=== PATIENT | female | born 1965 | race African-American/Black ===

== ENCOUNTER 2019-12-24 14:26 | Inpatient (IN) ==
[2019-12-24] MEDS ORDERED: cefTRIAXone 1,000 MG VIAL ONE (14:47)
[2019-12-24] MEDS ORDERED: cefTRIAXone 1,000 MG in SODIUM CHLORIDE 0.9% 100 ML IV STA (14:47)
[2019-12-24] MEDS ORDERED: SODIUM CHLORIDE 0.9% 100 ML IV ONE (14:48)
[2019-12-24] MEDS ORDERED: cefTRIAXone 1,000 MG in SYRINGE 1 EACH IV STA (14:52)
[2019-12-24 15:22] LABS: Alanine Aminotransferase 51 U/L (13-56); Alkaline Phosphatase 111 U/L (45-117); Aspartate Amino Transferase 75 U/L (0-37); Bilirubin,Total < 0.39 MG/DL (0.2-1.0); Blood Urea Nitrogen 7 MG/DL (7-18); Estimated Glom Filtration Rate 118 ML/MIN; Glucose 101 MG/DL (74-106); Osmolality,Calculated 272.7 MOS/KG (273-304); Total Protein 7.1 G/DL (6.4-8.3)
[2019-12-24] MEDS ORDERED: AZITHROMYCIN 250 MG TABLET PO STA (15:31)
[2019-12-24 15:37] LABS: Eosinophils % 0.1 % (0.00-10.9); Hematocrit 39.8 VOL% (35.7-47.0); Hemoglobin 12.2 GM/DL (12.0-16.0); Immature Granulocytes % 0.4 %; Immature Granulocytes Absolute 0.03 #; Lymphocytes # 1.1 10*3/uL (1.4-4.0); Lymphocytes % 15.5 % (21.3-54.2); Mean Corpuscular HGB Conc 30.7 GM/DL (32-36); Mean Corpuscular Volume 78.2 FL (87-102); Mean Platelet Volume 10.8 FL (9.6-12.0); Monocytes % 3.9 % (1.7-12.7); Neutrophils % 80.1 % (38.7-73.9); Platelet Count 200 T/CUMM (130-400); Red Blood Count 5.09 MC/CUMM (3.8-5.5); Red Cell Distribution Width 16.2 % (9.3-17.3); White Blood Count 7.2 T/CUMM (4-12)
[2019-12-24] MEDS: HYDROXYCHLOROQUINE 200 MG TABLET PO SCH (15:59)
[2019-12-24] MEDS ORDERED: ZINC SULFATE 220 MG CAPSULE PO SCH (16:00)
[2019-12-24] MEDS ORDERED: hydrALAZINE 20 MG/1 ML VIAL IV PRN (16:18)
[2019-12-24] MEDS ORDERED: DEXTROSE 10% 250 ML BAG IV PRN (16:18)
[2019-12-24] MEDS ORDERED: ONDANSETRON 4 MG/2 ML VIAL IV PRN (16:18)
[2019-12-24] MEDS ORDERED: GLUCAGON 1 MG VIAL IM PRN (16:18)
[2019-12-24] MEDS: ENOXAPARIN 40 MG/0.4 ML SYRINGE SUBCUT SCH (17:29)
[2019-12-24] MEDS: ACETAMINOPHEN 325 MG TABLET PO PRN (20:53)
[2019-12-24] MEDS: ZALEPLON 5 MG CAPSULE PO PRN (21:08)
[2019-12-25 03:21] LABS: Basophils % 0.2 % (0.0-0.8); Hematocrit 37.6 VOL% (35.7-47.0); Hemoglobin 11.4 GM/DL (12.0-16.0); Immature Granulocytes % 0.2 %; Immature Granulocytes Absolute 0.01 #; Lymphocytes # 1.2 10*3/uL (1.4-4.0); Lymphocytes % 22.6 % (21.3-54.2); Mean Corpuscular HGB Conc 30.3 GM/DL (32-36); Mean Corpuscular Volume 79.5 FL (87-102); Mean Platelet Volume 10.4 FL (9.6-12.0); Monocytes % 4.9 % (1.7-12.7); Neutrophils % 72.1 % (38.7-73.9); Platelet Count 206 T/CUMM (130-400); Red Blood Count 4.73 MC/CUMM (3.8-5.5); Red Cell Distribution Width 16.2 % (9.3-17.3); White Blood Count 5.4 T/CUMM (4-12)
[2019-12-25 03:52] LABS: Calcium 8.3 MG/DL (8.5-10.1); Osmolality,Calculated 271.8 MOS/KG (273-304); Risk Ratio 1.87; Thyroid Stimulating Hormone 1.82 uIU/ml (0.358-3.74); VLDL CHOLESTEROL 11.2 MG/DL
[2019-12-25 08:12] LABS: Apearance,Urine CLEAR (Clear); Bilirubin,Urine Negative (Negative); Blood, Urine Negative (Negative); Glucose,Urine (UA) >=500 mg/dL (Negative); Ketones,Urine Negative (Negative); Nitrite,Urine Negative (Negative); Protein,Urine Negative; RBC,Urine 2 /HPF (0-4); Urine Color Straw (Yellow); Urine Specific Gravity 1.011 (1.001-1.035); Urine Urobilinogen < 2.0 EU/DL (0.2-1.0); WBC,Urine 3 /HPF (0-6)
[2019-12-25] MEDS: HYDROXYCHLOROQUINE 200 MG TABLET PO SCH ×2 (08:40→21:10)
[2019-12-25] MEDS: PANTOPRAZOLE 40 MG TABLET PO SCH (08:40)
[2019-12-25] MEDS: cefTRIAXone 1,000 MG in SYRINGE 1 EACH IV SCH (08:40)
[2019-12-25] MEDS: ACETAMINOPHEN 325 MG TABLET PO PRN ×2 (11:54→21:10)
[2019-12-25] MEDS: guaiFENesin/DM ER 600-30 MG TABLET PO SCH ×2 (11:54→21:10)
[2019-12-25] MEDS: ENOXAPARIN 40 MG/0.4 ML SYRINGE SUBCUT SCH (19:12)
[2019-12-25] MEDS: ZALEPLON 5 MG CAPSULE PO PRN (21:10)
[2019-12-26 03:29] LABS: Basophils % 0.2 % (0.0-0.8); Hematocrit 38.5 VOL% (35.7-47.0); Hemoglobin 11.5 GM/DL (12.0-16.0); Immature Granulocytes % 1.2 %; Immature Granulocytes Absolute 0.07 #; Lymphocytes # 1.2 10*3/uL (1.4-4.0); Lymphocytes % 20.5 % (21.3-54.2); Mean Corpuscular HGB Conc 29.9 GM/DL (32-36); Mean Corpuscular Volume 79.9 FL (87-102); Mean Platelet Volume 9.7 FL (9.6-12.0); Monocytes % 6.6 % (1.7-12.7); Neutrophils % 71.5 % (38.7-73.9); Platelet Count 239 T/CUMM (130-400); Red Blood Count 4.82 MC/CUMM (3.8-5.5); White Blood Count 5.6 T/CUMM (4-12)
[2019-12-26 03:50] LABS: Calcium 8.4 MG/DL (8.5-10.1); Osmolality,Calculated 273.7 MOS/KG (273-304)
[2019-12-26 09:56] LABS: ABG Base Excess 3.2 MMOL/L (-2.5-2.5); ABG HCO3 27.1 MMOL/L (20-26); ABG Oxygen Saturation 91.6 % (95-100); ABG PH 7.452 (7.35-7.45); ABG PO2 59.5 MM HG (80-95)
[2019-12-26] MEDS: HYDROXYCHLOROQUINE 200 MG TABLET PO SCH ×2 (10:46→22:00)
[2019-12-26] MEDS: cefTRIAXone 1,000 MG in SYRINGE 1 EACH IV SCH (10:47)
[2019-12-26] MEDS: guaiFENesin/DM ER 600-30 MG TABLET PO SCH ×2 (10:47→22:00)
[2019-12-26] MEDS: PANTOPRAZOLE 40 MG TABLET PO SCH (10:47)
[2019-12-26] MEDS ORDERED: DEXTROSE 50% 25 GM/50 ML VIAL IV PRN (13:41)
[2019-12-26] MEDS ORDERED: LORazepam 0.5 MG TABLET PO PRN (13:53)
[2019-12-26] MEDS: ACETAMINOPHEN 325 MG TABLET PO PRN ×2 (16:30→22:00)
[2019-12-26] MEDS: INSULIN LISPRO 100 UNIT/ML SUBCUT SCH ×2 (17:30→21:47)
[2019-12-26] MEDS ORDERED: ALBUTEROL/IPRATROPIUM 3 ML NEB RESP TX SCH (19:00)
[2019-12-26] MEDS: ZALEPLON 5 MG CAPSULE PO PRN (22:00)
[2019-12-26] MEDS: ENOXAPARIN 40 MG/0.4 ML SYRINGE SUBCUT SCH (22:00)
[2019-12-27 03:40] LABS: Basophils % 0.5 % (0.0-0.8); Eosinophils % 0.2 % (0.00-10.9); Hematocrit 37.9 VOL% (35.7-47.0); Hemoglobin 11.6 GM/DL (12.0-16.0); Immature Granulocytes % 2.2 %; Immature Granulocytes Absolute 0.13 #; Lymphocytes # 1.3 10*3/uL (1.4-4.0); Lymphocytes % 22.9 % (21.3-54.2); Mean Corpuscular HGB Conc 30.6 GM/DL (32-36); Mean Corpuscular Volume 77.5 FL (87-102); Mean Platelet Volume 9.9 FL (9.6-12.0); Monocytes % 6.8 % (1.7-12.7); Neutrophils % 67.4 % (38.7-73.9); Platelet Count 262 T/CUMM (130-400); Red Blood Count 4.89 MC/CUMM (3.8-5.5); Red Cell Distribution Width 16.1 % (9.3-17.3); White Blood Count 5.9 T/CUMM (4-12)
[2019-12-27 04:06] LABS: Calcium 8.5 MG/DL (8.5-10.1); Osmolality,Calculated 267.1 MOS/KG (273-304)
[2019-12-27] MEDS: LEVOTHYROXINE 50 MCG TABLET PO SCH ×2 (05:14→06:00)
[2019-12-27] MEDS ORDERED: HydrOXYzine PAMOATE 50 MG CAPSULE PO PRN (07:39)
[2019-12-27] MEDS ORDERED: POTASSIUM CHLORIDE RIDER 10 MEQ in PREMIX 1 EACH IV PRN (07:45)
[2019-12-27] MEDS ORDERED: POTASSIUM CHLORIDE 20 MEQ TABLET PO PRN (07:45)
[2019-12-27] MEDS ORDERED: MAGNESIUM SULF RIDER 4 GM in PREMIX 1 EACH IV PRN (07:46)
[2019-12-27] MEDS ORDERED: MAGNESIUM SULF RIDER 2 GM in PREMIX 1 EACH IV PRN (07:46)
[2019-12-27] MEDS ORDERED: ZINC SULFATE 220 MG CAPSULE PO SCH (09:00)
[2019-12-27] MEDS: INSULIN LISPRO 100 UNIT/ML SUBCUT SCH ×4 (09:00→21:08)
[2019-12-27] MEDS: HYDROXYCHLOROQUINE 200 MG TABLET PO SCH (09:05)
[2019-12-27] MEDS: guaiFENesin/DM ER 600-30 MG TABLET PO SCH ×2 (09:05→21:09)
[2019-12-27] MEDS: cefTRIAXone 1,000 MG in SYRINGE 1 EACH IV SCH (10:08)
[2019-12-27] MEDS: POTASSIUM CHLORIDE 10 MEQ TABLET PO SCH (10:30)
[2019-12-27] MEDS: METOPROLOL TARTRATE 25 MG TABLET PO SCH ×2 (10:30→21:09)
[2019-12-27] MEDS: FUROSEMIDE 40 MG TABLET PO SCH (10:30)
[2019-12-27] MEDS: GABAPENTIN 600 MG TABLET PO SCH ×3 (10:30→21:09)
[2019-12-27] MEDS: FLUoxetine 20 MG CAPSULE PO SCH (10:30)
[2019-12-27] MEDS ORDERED: traZODone 50 MG TABLET PO SCH (21:00)
[2019-12-27] MEDS ORDERED: AMITRIPTYLINE 100 MG TABLET PO SCH (21:00)
[2019-12-27] MEDS ORDERED: SIMVASTATIN 40 MG TABLET PO SCH (21:00)
[2019-12-27] MEDS: ENOXAPARIN 40 MG/0.4 ML SYRINGE SUBCUT SCH (21:09)
[2019-12-27] MEDS: ALBUTEROL INHALER 8 GM INH SCH (23:05)
[2019-12-28] MEDS ORDERED: LEVOTHYROXINE 50 MCG TABLET PO SCH (09:00)
[2019-12-28] MEDS ORDERED: HYDROXYCHLOROQUINE 200 MG TABLET PO SCH (09:00)
[2019-12-28] MEDS: INSULIN LISPRO 100 UNIT/ML SUBCUT SCH ×3 (09:19→18:33)
[2019-12-28] MEDS: guaiFENesin/DM ER 600-30 MG TABLET PO SCH (09:20)
[2019-12-28] MEDS: FLUoxetine 20 MG CAPSULE PO SCH (09:20)
[2019-12-28] MEDS: POTASSIUM CHLORIDE 10 MEQ TABLET PO SCH (09:20)
[2019-12-28] MEDS: FUROSEMIDE 40 MG TABLET PO SCH (09:20)
[2019-12-28] MEDS: METOPROLOL TARTRATE 25 MG TABLET PO SCH (09:20)
[2019-12-28] MEDS: GABAPENTIN 600 MG TABLET PO SCH ×2 (09:20→14:24)
[2019-12-28] MEDS: ACETAMINOPHEN 325 MG TABLET PO PRN ×2 (09:20→14:24)
[2019-12-28] MEDS: cefTRIAXone 1,000 MG in SYRINGE 1 EACH IV SCH (09:21)
[2019-12-28 11:18] LABS: Basophils % 0.4 % (0.0-0.8); Eosinophils % 0.6 % (0.00-10.9); Hematocrit 36.2 VOL% (35.7-47.0); Immature Granulocytes % 3.8 %; Immature Granulocytes Absolute 0.26 #; Lymphocytes # 1.4 10*3/uL (1.4-4.0); Lymphocytes % 20.9 % (21.3-54.2); Mean Corpuscular HGB Conc 30.4 GM/DL (32-36); Mean Corpuscular Volume 79.9 FL (87-102); Mean Platelet Volume 9.6 FL (9.6-12.0); Monocytes % 6.5 % (1.7-12.7); Neutrophils % 67.8 % (38.7-73.9); Platelet Count 300 T/CUMM (130-400); Red Blood Count 4.53 MC/CUMM (3.8-5.5); Red Cell Distribution Width 16.3 % (9.3-17.3); White Blood Count 6.8 T/CUMM (4-12)
[2019-12-28 11:37] LABS: Band Neutrophils 2 % (0-10); Hypochromasia 1+; Lymphocytes 14 % (20-55); Ovalocytes Slight; Platelet Estimate Adequate; Segmented Neutrophils 76 % (50-85); Total Cells Counted 100
[2019-12-28 11:41] LABS: Alanine Aminotransferase 49 U/L (13-56); Alkaline Phosphatase 107 U/L (45-117); Aspartate Amino Transferase 82 U/L (0-37); Bilirubin,Total < 0.39 MG/DL (0.2-1.0); Blood Urea Nitrogen 10 MG/DL (7-18); Calcium 8.5 MG/DL (8.5-10.1); Estimated Glom Filtration Rate 89 ML/MIN; Glucose 203 MG/DL (74-106); Total Protein 7.5 G/DL (6.4-8.3)
[2019-12-28 12:40] LABS: Sedimentation Rate-Westergren 87 MM/HR (0-30)
[2019-12-28 12:44] LABS: ABG Base Excess 5.6 MMOL/L (-2.5-2.5); ABG HCO3 29.5 MMOL/L (20-26); ABG Oxygen Saturation 95.2 % (95-100); ABG PCO2 48.9 MM HG (35-48); ABG PH 7.414 (7.35-7.45); ABG PO2 75.7 MM HG (80-95); ABG TCO2 27.9 MMOL/L (23-27)
[2019-12-28 17:09] VITALS: BP 110/57
== END 2019-12-28 18:20 | disposition hospice, home (50) | DRG 177 ==
LOC: EDBD → EDUNIT# → N.ED 14:26 → SUATTDRO 16:11 → N.EDINP 16:11 → N.2W 17:25
PROVIDERS: ADMIT Family Medicine; ATTEND Internal Medicine